=== PATIENT | female | born 1940 | race Native Hawaiian/Other Pacific Islander ===

== ENCOUNTER 2017-01-18 11:40 | Outpatient (CLI) | payer OTHER | END 2017-01-18 19:08 | disposition home or self-care (01) | LOC: US 11:40 | DX: M79.89 Other specified soft tissue disorders (principal); J44.9 Chronic obstructive pulmonary disease, unspecified ==

== ENCOUNTER 2017-01-22 08:59 | Outpatient (CLI) | payer OTHER ==
[2017-01-22 09:20] LABS: PLATELET COUNT 174 K/uL (152-353)
== END 2017-01-22 19:44 | disposition home or self-care (01) ==
LOC: LABW 08:59
PROVIDERS: Internal Medicine
DX: I10 Essential (primary) hypertension (principal)
CPT/HCPCS: 36415; 80053; 80061; 81000; 84439; 84443; 85027

== ENCOUNTER 2017-02-06 08:58 | Outpatient (CLI) | payer OTHER | END 2017-02-06 19:13 | disposition home or self-care (01) | LOC: RESP 08:58 | DX: R06.02 Shortness of breath (principal) | CPT/HCPCS: 94664 ==

== ENCOUNTER 2017-02-27 09:54 | Outpatient (CLI) | payer OTHER | END 2017-02-27 19:12 | disposition home or self-care (01) | LOC: CT 09:54 | DX: R91.1 Solitary pulmonary nodule (principal) ==

== ENCOUNTER 2017-08-08 08:07 | Outpatient (CLI) | payer OTHER ==
[2017-08-08 08:49] LABS: PLATELET COUNT 157 K/uL (152-353)
[2017-08-08 10:04] LABS: POTASSIUM 4.1 mmol/L (3.6-5.2)
== END 2017-08-08 19:05 | disposition home or self-care (01) ==
LOC: LABW 08:07
PROVIDERS: Internal Medicine
DX: I10 Essential (primary) hypertension (principal)
CPT/HCPCS: 36415; 80053; 80061; 81000; 84439; 84443; 85027

== ENCOUNTER 2018-07-30 08:17 | Outpatient (CLI) | payer OTHER ==
[2018-07-30 08:44] LABS: PLATELET COUNT 117 K/uL (152-353)
[2018-07-30 08:57] LABS: POTASSIUM 3.6 mmol/L (3.6-5.2)
== END 2018-07-30 22:24 | disposition home or self-care (01) ==
LOC: LABW 08:17
PROVIDERS: Internal Medicine
DX: M51.36 Other intervertebral disc degeneration, lumbar region (principal); I10 Essential (primary) hypertension
CPT/HCPCS: 36415; 80053; 80061; 80307; 81000; 84439; 84443; 85027